=== PATIENT | female | born 1985 | race Caucasian/White ===

== ENCOUNTER 2017-02-07 08:52 | Emergency (ER) | payer MEDICAID ==
[2017-02-07] MEDS ORDERED: Hyoscyamine 0.125 MG Tab.SL SL ONE (09:21)
[2017-02-07] MEDS ORDERED: Alum Hydrox/Mag Hydrox/Simeth 30 ML, Lidocaine 2% 15 ML PO ONE ×2 (09:21)
--- NOTE | 2017-02-07 09:21 | EDM.PDOC ---
ED HPI GENERAL MEDICAL PROBLEM - General Chief Complaint: Abdominal Pain Stated Complaint: ABDOMINAL PAIN Time Seen by Provider: 02/07/17 09:15 Source of Information: Reports: Patient History Limitations: Reports: No Limitations - History of Present Illness INITIAL COMMENTS - FREE TEXT/NARRATIVE: 31-year-old female presents to the ED with diffuse pain and pressure in her epigastrium. Has a history of chronic gastroesophageal reflux disease usually well controlled with Nexium once daily. 2 mornings ago she awoke with epigastric pain that has failed to go away. It does radiate through to her back. Some relief with burping and belching. No relief with taking over-the- counter medications antacids etc. for the last 2 days. She can eat and she can swallow I note no true odynophagia. No known history of high hiatal hernia. She has never been . She has had no previous abdominal surgery. History of chronic constipation. Onset: Sudden Onset Date: 02/05/17 Onset Time: 07:00 Duration: Day(s):, Constant Location: Reports: Abdomen (Epigastrium into the stomach area.) Quality: Reports: Ache, Burning, Pressure Severity: Moderate Improves with: Reports: None Worsens with: Reports: None Context: Reports: Other. 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: Reports: Other (see below) (Antacids.) Epigastric Pain Score (Numeric/FACES): 10 - Related Data Allergies Allergy/AdvReac Type Severity Reaction Status Date / Time grapes Allergy Anaphylactic Uncoded 02/07/17 09:03 Shock Home Meds: Home Meds Albuterol [Ventolin HFA] 2 puff INH Q4H PRN 12/21/13 [History] FLUoxetine [PROzac] 20 mg PO DAILY 12/21/13 [History] Multivitamin with Minerals [Multiple Vitamin] 1 tab PO DAILY 12/25/13 [History] Omeprazole 40 mg PO DAILY #30 cap.sr 12/25/13 [Rx] Lubiprostone [Amitiza] 24 mcg PO ASDIRECTED 02/29/16 [History] Penicillin V Potassium 500 mg PO QID #28 tab 02/29/16 [Rx] Past Medical History HEENT History: Reports: Impaired Vision Cardiovascular History: Reports: Heart Murmur Respiratory History: Reports: Asthma Gastrointestinal History: Reports: Chronic Constipation (Severe.), GERD, Other ( See Below) Other Gastrointestinal History: Chrons disease Genitourinary History: Reports: Other (See Below) Other Genitourinary History: Overactive bladder Psychiatric History: Reports: Anxiety, Depression - Infectious Disease History Infectious Disease History: Reports: Chicken Pox Social & Family History - Family History Family Medical History: Noncontributory - Tobacco Use Smoking Status *Q: Current Every Day Smoker Years of Tobacco use: 10 Packs/Tins Daily: 0.5 Tobacco Use Comment: Patient states she "vapes" Second Hand Smoke Exposure: No - Alcohol Use Days Per Week of Alcohol Use: 0 - Recreational Drug Use Recreational Drug Use: No - Living Situation & Occupation Living situation: Reports: Occupation: Unemployed ED ROS GENERAL - Review of Systems Review Of Systems: See Below Constitutional: Reports: No Symptoms HEENT: Reports: No Symptoms Respiratory: Reports: No Symptoms Cardiovascular: Reports: No Symptoms Endocrine: Reports: No Symptoms GI/Abdominal: Reports: Abdominal Pain, Constipation (See history of present illness chronically) : Reports: No Symptoms Musculoskeletal: Reports: No Symptoms Skin: Reports: No Symptoms Neurological: Reports: No Symptoms Psychiatric: Reports: No Symptoms Hematologic/Lymphatic: Reports: No Symptoms Immunologic: Reports: No Symptoms ED EXAM, GI/ABD - Physical Exam Exam: See Below Exam Limited By: No Limitations General Appearance: Alert, WD/WN, Mild Distress Eyes: Bilateral: Normal Appearance (No jaundice) Throat/Mouth: Normal Inspection, Normal Lips, Normal Teeth, Normal Oropharynx Head: Atraumatic, Normocephalic Neck: Normal Inspection, Non-Tender, Full Range of Motion. No: Lymphadenopathy (L), Lymphadenopathy (R) Respiratory/Chest: No Respiratory Distress, Lungs Clear, Normal Breath Sounds, No Accessory Muscle Use, Chest Non-Tender Cardiovascular: Normal Peripheral Pulses, Regular Rate, Rhythm, No Edema, No Gallop, No JVD, No Murmur GI/Abdominal: Normal Bowel Sounds, Soft, No Organomegaly, No Distention, Tenderness (Only in the epigastrium.), Other. No: Guarding, Rebound, Rigidity, Fonseca's Sign Back Exam: Normal Inspection, Full Range of Motion. No: CVA Tenderness (L), CVA Tenderness (R) Extremities: Normal Inspection, Normal Range of Motion, Non-Tender, No Pedal Edema, Normal Capillary Refill Neurological: Alert, Oriented, CN II-XII Intact, Normal Cognition, Normal Gait, No Motor/Sensory Deficits, Disoriented Psychiatric: Normal Affect, Normal Mood Skin Exam: Warm, Dry, Intact, Normal Color, No Rash Course - Vital Signs Last Recorded V/S: Last Vital Signs Temp 36.1 C 02/07/17 08:58 Pulse 88 02/07/17 13:38 Resp 20 02/07/17 13:38 BP 117/88 02/07/17 13:38 Pulse Ox 100 02/07/17 13:38 - Orders/Labs/Meds Orders: Active Orders 24 hr Category Date Time Status Sodium Chloride 0.9% [Normal Saline] 1,000 ml Med 02/07/17 09:45 Active IV ASDIRECTED Sodium Chloride 0.9% [Saline Flush] Med 02/07/17 10:32 Active 10 ml FLUSH ONETIME PRN Medication Orders Sodium Chloride (Normal Saline) 1,000 mls @ 999 mls/hr IV ASDIRECTED ALEAH Last Admin: 02/07/17 09:51 Dose: 999 mls/hr Sodium Chloride (Saline Flush) 10 ml FLUSH ONETIME PRN PRN Reason: IV FLUSH Last Admin: 02/07/17 11:03 Dose: 10 ml Labs: Laboratory Tests 02/07/17 02/07/17 02/07/17 Range/Units 09:10 09:10 09:10 WBC 15.73 H (3.98-10.04) K/mm3 RBC 4.45 (3.98-5.22) M/mm3 Hgb 12.8 (11.2-15.7) gm/L Hct 39.6 (34.1-44.9) % MCV 89.0 (79.4-94.8) fl MCH 28.8 (25.6-32.2) pg MCHC 32.3 (32.2-35.5) g/dl RDW Std Deviation 46.9 H (36.4-46.3) fL Plt Count 380 H (182-369) K/mm3 MPV 11.0 (9.4-12.3) fl Neutrophils % (Manual) 79 H (40-60) % Band Neutrophils % 2 (0-10) % Lymphocytes % (Manual) 11 L (20-40) % Atypical Lymphs % 0 % Monocytes % (Manual) 7 (2-10) % Eosinophils % (Manual) 1 (0.7-5.8) % Basophils % (Manual) 0 L (0.1-1.2) Platelet Estimate Adequate RBC Morph Comment Normal Sodium 140 (136-145) mEq/L Potassium 3.9 (3.5-5.1) mEq/L Chloride 106 (98-107) mEq/L Carbon Dioxide 23 (21-32) mEq/L Anion Gap 14.9 (5-15) BUN 14 (7-18) mg/dL Creatinine 1.0 (0.55-1.02) mg/dL Est Cr Clr Drug Dosing 68.05 mL/min Estimated GFR (MDRD) > 60 (>60) mL/min BUN/Creatinine Ratio 14.0 (14-18) Glucose 86 (74-106) mg/dL Calcium 8.8 (8.5-10.1) mg/dL Total Bilirubin 1.3 H (0.2-1.0) mg/dL GGT (5-55) U/L AST 620 H (15-37) U/L ALT 523 H (14-59) U/L Alkaline Phosphatase 223 H (46-116) U/L C-Reactive Protein 1.2 H* (<1.0) mg/dL Total Protein 7.8 (6.4-8.2) g/dl Albumin 3.6 (3.4-5.0) g/dl Globulin 4.2 gm/dL Albumin/Globulin Ratio 0.9 L (1-2) Lipase 74 (73-393) U/L HCG, Qual (NEGATIVE) Urine Color (Yellow) Urine Appearance (Clear) Urine pH (5.0-8.0) Ur Specific [place] (1.005-1.030) Urine Protein (Negative) Urine Glucose (UA) (Negative) Urine Ketones (Negative) Urine Occult Blood (Negative) Urine Nitrite (Negative) Urine Bilirubin (Negative) Urine Urobilinogen (0.2-1.0) Ur Leukocyte Esterase (Negative) Urine RBC (0-5) /hpf Urine WBC (0-5) /hpf Ur Epithelial Cells (0-5) /hpf Amorphous Sediment (NOT SEEN) /hpf Urine Bacteria (FEW) /hpf Urine Mucus (FEW) /hpf Acetaminophen (10-30) ug/mL H. pylori IgG Antibody Negative (NEGATIVE) 02/07/17 02/07/17 02/07/17 Range/Units 09:10 09:10 12:20 WBC (3.98-10.04) K/mm3 RBC (3.98-5.22) M/mm3 Hgb (11.2-15.7) gm/L Hct (34.1-44.9) % MCV (79.4-94.8) fl MCH (25.6-32.2) pg MCHC (32.2-35.5) g/dl RDW Std Deviation (36.4-46.3) fL Plt Count (182-369) K/mm3 MPV (9.4-12.3) fl Neutrophils % (Manual) (40-60) % Band Neutrophils % (0-10) % Lymphocytes % (Manual) (20-40) % Atypical Lymphs % % Monocytes % (Manual) (2-10) % Eosinophils % (Manual) (0.7-5.8) % Basophils % (Manual) (0.1-1.2) Platelet Estimate RBC Morph Comment Sodium (136-145) mEq/L Potassium (3.5-5.1) mEq/L Chloride (98-107) mEq/L Carbon Dioxide (21-32) mEq/L Anion Gap (5-15) BUN (7-18) mg/dL Creatinine (0.55-1.02) mg/dL Est Cr Clr Drug Dosing mL/min Estimated GFR (MDRD) (>60) mL/min BUN/Creatinine Ratio (14-18) Glucose (74-106) mg/dL Calcium (8.5-10.1) mg/dL Total Bilirubin (0.2-1.0) mg/dL GGT 1002 H (5-55) U/L AST (15-37) U/L ALT (14-59) U/L Alkaline Phosphatase (46-116) U/L C-Reactive Protein (<1.0) mg/dL Total Protein (6.4-8.2) g/dl Albumin (3.4-5.0) g/dl Globulin gm/dL Albumin/Globulin Ratio (1-2) Lipase (73-393) U/L HCG, Qual Negative (NEGATIVE) Urine Color Yellow (Yellow) Urine Appearance Slt cloudy H (Clear) Urine pH 7.5 (5.0-8.0) Ur Specific [place] 1.015 (1.005-1.030) Urine Protein Negative (Negative) Urine Glucose (UA) Negative (Negative) Urine Ketones Negative (Negative) Urine Occult Blood Negative (Negative) Urine Nitrite Negative (Negative) Urine Bilirubin Negative (Negative) Urine Urobilinogen 1.0 (0.2-1.0) Ur Leukocyte Esterase Negative (Negative) Urine RBC Not seen (0-5) /hpf Urine WBC 0-5 (0-5) /hpf Ur Epithelial Cells 0-5 (0-5) /hpf Amorphous Sediment Many H (NOT SEEN) /hpf Urine Bacteria Few (FEW) /hpf Urine Mucus Not seen (FEW) /hpf Acetaminophen 0 L (10-30) ug/mL H. pylori IgG Antibody (NEGATIVE) Meds: Medications Generic Name Dose Route Start Last Admin Trade Name Taylor PRN Reason Stop Dose Admin Sodium Chloride 1,000 mls @ 999 mls/hr 02/07/17 09:45 02/07/17 09:51 Normal Saline IV 999 mls/hr ASDIRECTED ALEAH Administration Sodium Chloride 10 ml 02/07/17 10:32 02/07/17 11:03 Saline Flush FLUSH 10 ml ONETIME PRN Administration IV FLUSH Discontinued Medications Generic Name Dose Route Start Last Admin Trade Name Taylor PRN Reason Stop Dose Admin Al Hydroxide/Mg Hydroxide 30 0 ml 02/07/17 09:21 02/07/17 09:27 ml/ Lidocaine HCl 15 ml PO 02/07/17 09:22 45 ml ONETIME ONE Administration Diatrizoate Meglum/Diatrizoate Sod 120 ml 02/07/17 10:32 Gastrografin 37% PO 02/07/17 10:33 ONETIME ONE Hydromorphone HCl 0.5 mg 02/07/17 09:44 02/07/17 09:55 Dilaudid IVPUSH 02/07/17 09:45 0.5 mg ONETIME ONE Administration Hyoscyamine 0.125 mg 02/07/17 09:21 02/07/17 09:28 Hyomax-Sl SL 02/07/17 09:22 0.125 mg ONETIME ONE Administration Levofloxacin/Dextrose 750 mg/ 150 mls @ 100 mls/hr 02/07/17 12:36 02/07/17 12 :53 Premix IV 02/07/17 14:05 100 mls/hr ONETIME ONE Administration Iopamidol 150 ml 02/07/17 10:32 02/07/17 11:02 Isovue-300 (61%) IVPUSH 02/07/17 10:33 110 ml ONETIME ONE Administration Magnesium Citrate 296 ml 02/07/17 10:24 02/07/17 11:43 Citrate Of Magnesia PO 02/07/17 10:25 296 ml ONETIME ONE Administration Metoclopramide HCl 7.5 mg 02/07/17 09:44 02/07/17 09:53 Reglan IVPUSH 02/07/17 09:45 7.5 mg ONETIME ONE Administration - Radiology Interpretation Free Text/Narrative:: 31-year-old female presents with a two-day history of epigastric pain. She still able to swallow and eat elbows been eating very small quantities of food the last 2 days. By history does have chronic gastroesophageal reflux disease usually well controlled with Nexium once daily. She awoke with the symptoms 2 mornings ago and this failed to improve. It's a constant pain in her epigastrium radiating through to her back. seems to get mild relief with burping. Emanation essentially is normal. Question is whether she has a hiatal hernia that is wedged into the gastroesophageal junction. It does not hurt to breathe however. Plan GI cocktail Levsin 0.125 mg sublingually. One view of the abdomen will be obtained. If this does not help then IV will be started lab work will be commenced and she will receive an upper GI CT with oral contrast. - Re-Assessments/Exams Free Text/Narrative Re-Assessment/Exam: 02/07/17 09:40 KUB reveals severe constipation with nearly the entire colon filled with stool. I suspect this is more likely the cause of her epigastric abdominal pain at this time. 02/07/17 09:43 patient reports a little bit of relief in the epigastrium from the GI cocktail and Levsin. Plan I will hook her up to IV and give her fluids. Treat her nausea and pain so that she can keep down oral Citroma. Plan IV will be normal saline at open. Routine labs including a serum lipase and CRP to be done. 02/07/17 10:24 patient reports pain is much improved after IV analgesia. She denies taking any Tylenol in the last 2 days for pain relief. She does not drink alcohol very often and certainly nothing within the last week. 02/07/17 10:30 labs are back and reveal an elevated white count at 15.73. Differential is pending hemoglobin is 12.8 hematocrit is 39.6. Limits of normal at 380,000. Chemistry shows sodium 140 potassium 3.9. Chloride 106 bicarbonate 23. Bilirubin is elevated mildly at 1.3 AST is elevated at 620. ALT is 523 and alk phosphatase is 2-3. Lipase is 74. GGT was ordered. CT of the abdomen and pelvis will be performed with IV contrast. 02/07/17 11:39 CT of the abdomen pulses been performed with IV contrast only. The gallbladder shows thickening of the wall and surrounding pericholecystic fluid compatible with acute cholecystitis. However no defined stones identified within the gallbladder itself. The pancreas appears structurally normal. Common bile duct appears to be slightly dilated its 5-6 mm. The large bowel is filled with stool is noted on KUB. GGT is pending. The differential on the white count is 79% neutrophils and 2% band cells. 02/07/17 12:16 GGT is finally back and it is elevated at 1002 strongly suggestive of biliary tree obstruction. I'm going to ahead and start the patient on Levaquin 750 mg IV. Ultrasound of the gallbladder has been ordered per radiologist suggestion. Ultrasound of the gallbladder reveals multiple gallstones within the gallbladder and the common bile duct is dilated at 8 mm. Therefore this is clinically any choledocholithiasis. She remains pain-free at this time. After mike discussion with her she is no other way of getting to [place] other than by ambulance which would leave her stranded there when it was time for discharge. She therefore would prefer to try and have this done tomorrow and take her to self their bedroom car to the she would be able to drive herself home after she was discharged. I will discuss this with [facility] security monitor. 02/07/17 13:00 discussed case with security monitor Dr. Rodger Covington and he has agreed that she requires ERCP. The problem so socially in terms of getting her to that institution so that she has a ride home as she has no family to take her and can't really afford the ambulance. The plan will be for her to drive herself to [facility] when she leaves our hospital. She is currently receiving Levaquin which will be run in over the next hour. Spoke with hospitalist is and he is accepted care. The plan will therefore be for the patient to drive herself to that facility be admitted and have potentially ERCP tomorrow and then tentatively be discharged and be able to drive herself home. 02/07/17 14:12 has completed her 750 mg of IV Levaquin infusion. 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 Departure - Departure Time of Disposition: 14:11 Disposition: DC/Tfer to Acute Hospital 02 Condition: fair Clinical Impression: Choledocholithiasis with acute cholecystitis with obstruction - Discharge Information Referrals: Irma Khan, DIGITAL PRODUCTION OPERATOR [Primary Care Provider] - Forms: ED Department Discharge Additional Instructions: Travel to [facility] in [facility] to be admitted to the hospital for potential ERCP procedure which means removal of debris and stone from the common bile duct under general anesthetic tomorrow morning. After this she will require your gallbladder to be removed but that can be done here in [place]. - My Orders Last 24 Hours: My Active Orders 02/07/17 09:45 Sodium Chloride 0.9% [Normal Saline] 1,000 ml IV ASDIRECTED 02/07/17 10:32 Sodium Chloride 0.9% [Saline Flush] 10 ml FLUSH ONETIME PRN - Assessment/Plan Last 24 Hours: My Active Orders 02/07/17 09:45 Sodium Chloride 0.9% [Normal Saline] 1,000 ml IV ASDIRECTED 02/07/17 10:32 Sodium Chloride 0.9% [Saline Flush] 10 ml FLUSH ONETIME PRN
[2017-02-07] MEDS ORDERED: Metoclopramide 10 MG/2 ML SDV IVPUSH ONE (09:44)
[2017-02-07] MEDS ORDERED: HYDROmorphone 0.5 MG/0.5 ML Syringe IVPUSH ONE (09:44)
[2017-02-07] MEDS ORDERED: Sodium Chloride 0.9% 1,000 ML IV SCH (09:45)
[2017-02-07] MEDS ORDERED: Magnesium Citrate Solution 296 ML Bottle PO ONE (10:24)
[2017-02-07] MEDS ORDERED: Sodium Chloride 0.9% 10 ML Syringe FLUSH PRN (10:32)
[2017-02-07] MEDS ORDERED: Iopamidol 612 MG/ML 150 ML Bottle IVPUSH ONE (10:32)
[2017-02-07] MEDS ORDERED: Diatrizoate Meglumine/Diatrizoate Sodium 37% 120 ML Bottle PO ONE (10:32)
--- NOTE | 2017-02-07 11:35 | CT ---
CT abdomen and pelvis Technique: Multiple axial sections were obtained from above the dome of the diaphragm inferiorly through the pubic symphysis. Intravenous contrast was utilized. No oral contrast has been given. Findings: Visualized lung bases shows nothing acute. Liver shows no focal abnormality. Gallbladder shows some questionable pericholecystic fluid. No calcified gallstones are seen. Pancreas appears within normal limits. Kidneys show symmetric contrast enhancement without hydronephrosis or mass. Adrenal glands show no nodule. Aorta shows no aneurysmal dilatation. No retroperitoneal adenopathy or mesenteric abnormalities are seen. Increased stool is noted throughout the colon. Appendix not seen with certainty. No free fluid or inflammatory change is seen within the abdomen or pelvis. Delayed images shows contrast excretion into both ureters and bladder. Impression: 1. Possible pericholecystic fluid around the gallbladder. Gallbladder ultrasound recommended to further evaluate. 2. Increased stool within the colon. No additional abnormality is identified on CT study of the abdomen and pelvis. Diagnostic code #3
--- NOTE | 2017-02-07 11:36 | CR ---
Abdomen: Supine view of the abdomen was obtained. Comparison: Previous abdominal x-ray of 05/08/12. Increased stool is seen throughout the colon. Bowel gas pattern is otherwise unremarkable. Calcifications are seen within the pelvis most likely representing phleboliths. No soft tissue abnormality is seen. Bony structures are unremarkable. Impression: 1. Increased stool throughout the colon. Other incidental findings. Diagnostic code #2
[2017-02-07 11:52] LABS: ACETAMINOPHEN 0 ug/mL (10-30)
[2017-02-07] MEDS ORDERED: Levofloxacin/Dextrose 5%-Water 750 MG in Premix Bag 1 BAG IV ONE (12:36)
--- NOTE | 2017-02-07 12:49 | US ---
Limited abdominal ultrasound: Multiple real-time images were obtained of the upper right abdomen. Comparison: Previous CT exam performed on the same day showing possible pericholecystic fluid Liver shows no focal parenchymal abnormality. Gallbladder shows wall thickening and gallbladder wall edema. Multiple gallstones are seen. Common bile duct measures mildly prominent at 8.0 mm. There may be some gallstones lodged within the gallbladder neck. Visualized portions of the pancreas are unremarkable. Right kidney shows no hydronephrosis or mass. Right kidney measures 9.6 cm in length. Impression: 1. Abnormal gallbladder as described above suggesting acute cholecystitis. Diagnostic code #3
[2017-02-07 15:32] VITALS: BP 126/96
== END 2017-02-07 15:20 ==
LOC: JD.ED 08:52
DX: K80.01 Calculus of gallbladder with acute cholecystitis with obstruction (principal); J45.909 Unspecified asthma, uncomplicated; K21.9 Gastro-esophageal reflux disease without esophagitis; F41.9 Anxiety disorder, unspecified; F32.9 Major depressive disorder, single episode, unspecified; F17.210 Nicotine dependence, cigarettes, uncomplicated; Z79.899 Other long term (current) drug therapy; Z91.018 Allergy to other foods
CPT/HCPCS: 36415; 74000; 74177; 76705; 80053; 81001; 82977; 83690; 84703; 85025; 86140; 86677; 96361; 96365; 96366; 96375; 99285; A9270; G0480; J1170; J1956; J2765; J7040; J7050; Q9963; Q9967

== ENCOUNTER 2018-09-03 12:11 | Emergency (ER) | payer OTHER, MEDICAID ==
[2018-09-03 12:27] VITALS: BP 125/95
[2018-09-03] MEDS ORDERED: Acetaminophen 325 MG Tab PO ONE (12:46)
--- NOTE | 2018-09-03 12:53 | EDM.PDOC ---
ED HPI GENERAL MEDICAL PROBLEM - General Chief Complaint: Lower Extremity Injury/Pain Stated Complaint: RIGHT ANKLE INJURY Time Seen by Provider: 09/03/18 12:25 Source of Information: Reports: Patient, RN Notes Reviewed History Limitations: Reports: No Limitations - History of Present Illness INITIAL COMMENTS - FREE TEXT/NARRATIVE: Patient is a 32 year old female who presents to the ED for the evaluation of right ankle pain. She states that she was getting out of her car and slipped on the ice and now has right ankle pain. She states this pain to be right in the ankle joint itself. She notes this to be a 7/10 on the pain scale. She is unsure of just exactly how the injury happened, or whether she rolled her ankle at all. She did not take any pain medications prior to arrival, as the incident happened and she came directly to ED. She notes that the whole ankle joint throbs. She is able to bear weight, but it is painful to do so. She denies any surgeries/fractures to this ankle but does note that she has had multiple sprains of this ankle before. She denies any muscle pain or knee pain. Right Ankle Pain Score (Numeric/FACES): 7 - Related Data Allergies Allergy/AdvReac Type Severity Reaction Status Date / Time grapes Allergy Anaphylactic Uncoded 09/03/18 12:27 Shock Home Meds: Home Meds Albuterol [Ventolin HFA] 2 puff INH Q4H PRN 12/21/13 [History] FLUoxetine [PROzac] 20 mg PO DAILY 12/21/13 [History] Multivitamin with Minerals [Multiple Vitamin] 1 tab PO DAILY 12/25/13 [History] Omeprazole 40 mg PO DAILY #30 cap.sr 12/25/13 [Rx] Lubiprostone [Amitiza] 24 mcg PO ASDIRECTED 02/29/16 [History] Penicillin V Potassium 500 mg PO QID #28 tab 02/29/16 [Rx] Past Medical History HEENT History: Reports: Impaired Vision Cardiovascular History: Reports: Heart Murmur Respiratory History: Reports: Asthma Gastrointestinal History: Reports: Chronic Constipation, GERD, Other (See Below) Other Gastrointestinal History: Chrons disease Genitourinary History: Reports: Other (See Below) Other Genitourinary History: Overactive bladder Psychiatric History: Reports: Anxiety, Depression - Infectious Disease History Infectious Disease History: Reports: Chicken Pox Social & Family History - Family History Family Medical History: Noncontributory - Tobacco Use Smoking Status *Q: Current Every Day Smoker Years of Tobacco use: 12 Packs/Tins Daily: 0.5 - Living Situation & Occupation Living situation: Reports: Occupation: Unemployed Review of Systems - Review of Systems Review Of Systems: See Below Constitutional: Reports: No Symptoms Eyes: Reports: No Symptoms Ears: Reports: No Symptoms Nose: Reports: No Symptoms Mouth/Throat: Reports: No Symptoms Respiratory: Reports: No Symptoms Cardiovascular: Reports: No Symptoms GI/Abdominal: Reports: No Symptoms Genitourinary: Reports: No Symptoms Musculoskeletal: Reports: Joint Pain (right ankle). Denies: Leg Pain, Joint Swelling, Muscle Pain, Muscle Stiffness Skin: Reports: No Symptoms Neurological: Reports: Tingling. Denies: Numbness, Difficulty Walking, Gait Disturbance Psychiatric: Reports: No Symptoms ED EXAM, GENERAL - Physical Exam Exam: See Below Free Text/Narrative:: exam limited to right lower extremity. Exam Limited By: No Limitations General Appearance: Alert, WD/WN, No Apparent Distress Head: Atraumatic, Normocephalic Neck: Normal Inspection Respiratory/Chest: No Respiratory Distress, Lungs Clear, Normal Breath Sounds, No Accessory Muscle Use, Chest Non-Tender Cardiovascular: Normal Peripheral Pulses, Regular Rate, Rhythm, No Murmur Extremities: Normal Inspection, Normal Range of Motion, No Pedal Edema, Normal Capillary Refill, Other (right ankle joint tender to palpation). No: Joint Swelling, Leg Pain, Increased Warmth, Pallor, Redness Neurological: Alert, Oriented, Normal Cognition, Normal Reflexes, No Motor/ Sensory Deficits Psychiatric: Normal Affect, Normal Mood Skin Exam: Warm, Dry, Intact, Normal Color, No Rash Course - Vital Signs Last Recorded V/S: Last Vital Signs Temp 97.4 F 09/03/18 12:25 Pulse 88 09/03/18 12:25 Resp 16 09/03/18 12:25 BP 125/95 H 09/03/18 12:25 Pulse Ox 100 09/03/18 12:25 - Orders/Labs/Meds Orders: Active Orders 24 hr Category Date Time Status Ankle Min 3V Rt [CR] Stat Exams 09/03/18 12:40 Ordered Meds: Medications Discontinued Medications Generic Name Dose Route Start Last Admin Trade Name Freq PRN Reason Stop Dose Admin Acetaminophen 650 mg 09/03/18 12:46 09/03/18 13:09 Tylenol PO 09/03/18 12:47 650 mg NOW ONE Administration - Re-Assessments/Exams Free Text/Narrative Re-Assessment/Exam: 09/03/18 12:55 Pt presents to the ED for the evaluation of right ankle pain s/p injury. Right ankle x-ray has been ordered for further evaluation. 650mg tylenol has been ordered for pain relief. 09/03/18 13:35 x-ray is done and does not demonstrate any fracture or acute abnormality. Departure - Departure Time of Disposition: 13:35 Disposition: Home, Self-Care 01 Clinical Impression: Right ankle sprain Qualifiers: Encounter type: initial encounter Involved ligament of ankle: unspecified ligament Qualified Code(s): S93.401A - Sprain of unspecified ligament of right ankle, initial encounter - Discharge Information *PRESCRIPTION DRUG MONITORING PROGRAM REVIEWED*: No *COPY OF PRESCRIPTION DRUG MONITORING REPORT IN PATIENT FAWAD: No Instructions: Elastic Bandage and RICE, Ankle Sprain, [id number] Referrals: Josefa Mckeon PA-C [Primary Care Provider] - Forms: ED Department Discharge Additional Instructions: You have been evaluated in the ED for your right ankle pain. Your x-ray demonstrated no acute fracture or other bony abnormality. Please use ice as tolerated to the affected area. You may sandra wrap the ankle or obtain an ankle brace from a retailer to provide further pain relief. You may take tylenol 500 mg q6 hrs for pain relief. Please do so until you have a tolerable level of pain with activity. Do not exceed 4000mg tylenol in one day. Please return to ED if your symptoms should change or worsen. - My Orders Last 24 Hours: My Active Orders 09/03/18 12:40 Ankle Min 3V Rt [CR] Stat - Assessment/Plan Last 24 Hours: My Active Orders 09/03/18 12:40 Ankle Min 3V Rt [CR] Stat
--- NOTE | 2018-09-03 13:38 | CR ---
Right ankle: Three views of the right ankle were obtained. Comparison: No prior right ankle exam. Ankle mortise is symmetric. No fracture, dislocation or other bony abnormality is seen. Impression: 1. No abnormality is identified on right ankle exam. Diagnostic code #1
== END 2018-09-03 13:50 | disposition home or self-care (01) ==
LOC: JD.ED 12:11
DX: S93.401A Sprain of unspecified ligament of right ankle, initial encounter (principal); J45.909 Unspecified asthma, uncomplicated; F17.210 Nicotine dependence, cigarettes, uncomplicated; Z79.899 Other long term (current) drug therapy; W00.0XXA Fall on same level due to ice and snow, initial encounter
CPT/HCPCS: 73610; 99283; A9270; 99282

== ENCOUNTER 2021-08-22 12:23 | Emergency (ER) | payer OTHER, MEDICAID ==
[2021-08-22 13:03] VITALS: BP 114/79; PULSE 85
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
--- NOTE | 2021-08-22 14:51 | CR ---
Right shoulder: 3 views of the right shoulder were obtained. Comparison: No prior shoulder study is available. Acromioclavicular and glenohumeral joints appear within normal limits. No fracture, dislocation or other bony abnormality is seen. No abnormal soft tissue calcifications are seen. Impression: 1. Nothing acute is seen on right shoulder study. Diagnostic code #1
--- NOTE | 2021-08-22 14:51 | CR ---
Thoracic spine: AP and lateral views of the thoracic spine were obtained. Comparison: No prior thoracic spine study is available. Mild scoliosis is noted. Vertebral body heights and disc spaces are fairly well preserved. Pedicles are intact. Surgical clips are seen from prior cholecystectomy. No fracture or subluxation is seen. Impression: 1. Mild scoliosis. Prior cholecystectomy. 2. Nothing acute is seen on 2-view thoracic spine study. Diagnostic code #2
--- NOTE | 2021-08-22 15:28 | CT ---
Head CT Technique: Multiple axial sections through the brain were obtained. Intravenous contrast was not utilized. Reconstructed coronal and sagittal images were obtained. Comparison: Prior head CT dated 10/28/10. Findings: Ventricles along with basal cisterns and sulci over the convexities are within normal limits for the patient's age. No abnormal parenchymal densities are seen. No evidence of intracranial hemorrhage is seen. No midline shift or mass-effect is seen. Bone window settings were reviewed. Visualized mastoid sinuses and paranasal sinuses shows nothing acute. No acute calvarial abnormality is appreciated. Impression: 1. Nothing acute is seen on noncontrast head CT study. Diagnostic code #1
--- NOTE | 2021-08-22 15:28 | CT ---
CT cervical spine Technique: Multiple axial sections were obtained from above C1 inferiorly to the bottom of T1. Reconstructed coronal and sagittal images were obtained. Comparison: No prior cervical spine studies available. Findings: Mild disc space narrowing is noted at C4-5 with moderate disc space at C5-6. Slight posterior osteophytes are seen at C4-5 and more prominent posterior osteophytes at C5-6. Slight anterior osteophytes are also seen at both these levels. Neural foramina are patent. Posterior spurring at C5-6 causes mild central canal stenosis. No fracture or subluxation is seen. Impression: 1. Degenerative change as noted above. 2. No acute fracture or subluxation is seen. Diagnostic code #2
== END 2021-08-22 16:45 | disposition home or self-care (01) ==
LOC: JD.ED 12:23
DX: S16.1XXA Strain of muscle, fascia and tendon at neck level, initial encounter (principal); S29.012A Strain of muscle and tendon of back wall of thorax, initial encounter; S46.911A Strain of unspecified muscle, fascia and tendon at shoulder and upper arm level, right arm, initial encounter; R51.9 Headache, unspecified; Z79.899 Other long term (current) drug therapy; V89.2XXA Person injured in unspecified motor-vehicle accident, traffic, initial encounter
CPT/HCPCS: 70450; 70450-26; 72070; 72070-26; 72125; 72125-26; 73030-26-RT; 73030-RT; 99284-25

== ENCOUNTER 2022-01-07 21:19 | Emergency (ER) | payer MEDICAID ==
[2022-01-07 21:35] VITALS: BP 198/128; PULSE 106
[2022-01-07] MEDS ORDERED: HYDROmorphone 1 MG/ML Syringe IM ONE (21:58)
[2022-01-07] MEDS ORDERED: Ketorolac 60 MG/2 ML SDV IM ONE (23:13)
== END 2022-01-07 23:41 | disposition home or self-care (01) ==
LOC: JD.ED 21:19
DX: M54.50 Low back pain, unspecified (principal); R10.84 Generalized abdominal pain; R10.814 Left lower quadrant abdominal tenderness; M54.2 Cervicalgia; M79.10 Myalgia, unspecified site
CPT/HCPCS: 36415; 80053; 85025; 86140; 96372; 99284; J1170; J1885

== ENCOUNTER 2022-07-25 23:28 | Emergency (ER) | payer MEDICAID ==
[2022-07-26 01:38] VITALS: BP 107/74; PULSE 85
== END 2022-07-26 01:41 | disposition home or self-care (01) ==
LOC: JD.ED 23:28
DX: G89.29 Other chronic pain (principal); M25.511 Pain in right shoulder; M25.551 Pain in right hip; M25.552 Pain in left hip; Z87.891 Personal history of nicotine dependence; Z88.8 Allergy status to other drugs, medicaments and biological substances; Z91.018 Allergy to other foods
CPT/HCPCS: 99283

== ENCOUNTER 2025-01-01 13:33 | Emergency (ER) | payer MEDICAID ==
[2025-01-01 13:49] VITALS: PULSE 73
[2025-01-01] MEDS: Sodium Chloride 0.9% 1,000 ML IV STA (14:40)
[2025-01-01] MEDS: Sodium Chloride 0.9% 10 ML Syringe FLUSH PRN (14:40)
[2025-01-01] MEDS: Ondansetron 4 MG/2 ML SDV IVPUSH ONE (14:40)
[2025-01-01 14:51] LABS: BASOPHILS ABSOLUTE AUTO 0.1 K/mm3 (0.0-0.2); BASOPHILS PERCENT AUTO 0.5 % (0.0-1.0); EOSINOPHILS ABSOLUTE AUTO 0.1 K/mm3 (0.0-0.4); EOSINOPHILS PERCENT AUTO 0.5 % (0.0-6.0); HEMATOCRIT 45.9 % (37.0-47.0); HEMOGLOBIN 15.2 gm/dl (12.0-16.0); IMMATURE GRAN ABSOLUTE AUTO 0.15 K/mm3 (0.00-0.05); IMMATURE GRAN PERCENT AUTO 0.6 % (0.0-0.4); LYMPHOCYTES ABSOLUTE AUTO 2.7 K/mm3 (1.0-4.8); LYMPHOCYTES PERCENT AUTO 11.7 % (24.0-44.0); MEAN CORPUSCULAR HEMOGLOBIN 28.4 pg (28.0-32.0); MEAN CORPUSCULAR HGB CONC 33.1 g/dl (32.0-36.0); MEAN CORPUSCULAR VOLUME 85.6 fl (83.0-99.0); MEAN PLATELET VOLUME 10.5 fl (9.4-12.3); MONOCYTES ABSOLUTE AUTO 1.1 K/mm3 (0.0-0.8); MONOCYTES PERCENT AUTO 4.8 % (0.0-8.0); NEUTROPHILS PERCENT AUTO 81.9 % (41.0-71.0); PLATELET COUNT,PLT 446 K/mm3 (150-400); RED BLOOD CELL COUNT 5.36 M/mm3 (4.10-5.30); WHITE BLOOD CELL COUNT,WBC 23.21 K/mm3 (3.9-11.3)
[2025-01-01 15:26] LABS: A/G RATIO 0.8 (1-2); ALBUMIN 3.9 g/dl (3.4-5.0); ANION GAP 16.7 (5-15); BILIRUBIN TOTAL 0.4 mg/dL (0.2-1.0); BUN/CREATININE RATIO 14.5 (14-18); C-REACTIVE PROTEIN 1.58 mg/dL (<0.30); CALCIUM 9.6 mg/dL (8.5-10.1); CREATININE 1.1 mg/dL (0.55-1.02); EST CRCL DRUG DOSING (CG) 57.36 mL/min; MAGNESIUM 2.1 mg/dL (1.8-2.4); POTASSIUM,K 3.7 mEq/L (3.5-5.1); PROTEIN TOTAL,TP 8.9 g/dl (6.4-8.2)
[2025-01-01] MEDS: Dicyclomine 20 MG/2 ML SDV IM ONE (15:48)
[2025-01-01] MEDS: Iopamidol 612 MG/ML 100 ML Bottle IVPUSH ONE (16:06)
[2025-01-01] MEDS: Sodium Chloride 0.9% 500 ML IV STA (17:10)
[2025-01-01 18:14] LABS: APPEARANCE,URINE CLEAR (Clear); BILIRUBIN,URINE 1+ (Negative); COLOR,URINE YELLOW (Yellow); GLUCOSE,URINE NEGATIVE (Negative); KETONES,URINE 3+ (Negative); LEUKOCYTE ESTERASE,URINE NEGATIVE (Negative); NITRITE,URINE NEGATIVE (Negative); OCCULT BLOOD,URINE 1+ (Negative); PROTEIN,URINE 1+ (Negative); UROBILINOGEN,URINE 0.2 (0.2-1.0)
[2025-01-01 18:25] LABS: BACTERIA,URINE FEW /hpf (FEW); MUCUS,URINE MODERATE /hpf (FEW); SQUAMOUS EPITHELIAL CELLS,UR 0-5 /hpf (0-5); WBC,URINE 0-5 /hpf (0-5)
[2025-01-01 19:11] VITALS: BP 127/79
== END 2025-01-01 19:11 | disposition home or self-care (01) ==
LOC: JD.ED 13:33
DX: K52.9 Noninfective gastroenteritis and colitis, unspecified (principal); Z91.018 Allergy to other foods; Z88.8 Allergy status to other drugs, medicaments and biological substances; Z79.899 Other long term (current) drug therapy; Z86.16 Personal history of COVID-19
CPT/HCPCS: 36415; 74177; 80053; 81001; 83690; 83735; 84703; 85025; 86140; 96361; 96372; 96374; 99284; C1758; J0500; J2405; J7030; Q9967